=== PATIENT | male | born 1995 | race African-American/Black ===

== ENCOUNTER 2021-08-19 17:56 | Emergency (ER) | payer SELFPAY ==
[2021-08-19 18:06] VITALS: BP 117/59; PULSE 98; RESP 16; TEMP 37.1; O2SAT 99
--- NOTE | 2021-08-19 18:59 | ED.MALEGU ---
HPI - Male Genitourinary General Chief complaint: Urogenital-Male Stated complaint: STD TESTING Time Seen by Provider: 08/19/21 18:53 Source: patient and RN notes reviewed Mode of arrival: ambulatory Limitations: no limitations History of Present Illness HPI Narrative: Patient presents today requesting treatment for trichomonas. His fijennifer?e has tested positive at her [employer]ICE [employer]OCI[employer]'s office. She is currently and has undergone treatment. Patient denies any symptoms. MD Complaint: possible STD exposure Related Data Allergies Allergy/AdvReac Type Severity Reaction Status Date / Time No Known Allergies Allergy Verified 08/19/21 19:01 Review of Systems Review of Systems: CONSTITUTIONAL: Denies body aches, fever, chills, or sweats. EYES: Denies visual changes, redness, or discharge. ENT: Denies rhinorrhea, congestion, sore throat, or otalgia. CARDIOVASCULAR: Denies chest pain, palpitations, or edema. RESPIRATORY: Denies cough or dyspnea. GASTROINTESTINAL: Denies abdominal pain, nausea, vomiting, or diarrhea. GENITOURINARY: Denies dysuria or hematuria. SKIN: Denies rash, itching, or wounds. MUSCULOSKELETAL: Denies back pain, joint pain, or myalgia. NEUROLOGIC: Denies headache, numbness, tingling, or weakness. PSYCH: Denies depression or anxiety. PMFSH Comments At time of signature, I have reviewed and agree with nursing past medical, surgical, social and family history unless otherwise noted. Please see nursing chart for further information. There is no relevant family history pertinent to the presenting complaint Exam Narrative: GENERAL: Well-appearing, well-nourished, and in no acute distress. HEAD: Normocephalic, atraumatic. EYES: EOMI. No redness or drainage. Conjunctivae normal. ENT: Mucous membranes pink and moist. NECK: Normal AROM. CHEST: No respiratory distress. : deferred EXTREMITIES: Normal range of motion. No edema. SKIN: Warm, dry, no rash. Capillary refill normal. Normal skin turgor. NEURO: No focal deficits. Alert and oriented x3. Gait steady. PSYCH: Normal affect. No signs of depression or anxiety. Course Course Emergency Course: At this time, the restaurants are out of order at the [facility], so a urine sample cannot be obtained. Will treat with Flagyl. Vital Signs Vital signs: Vital Signs Temperature 98.7 F 08/19/21 18:06 Pulse Rate 98 08/19/21 18:06 Respiratory Rate 16 08/19/21 18:06 Blood Pressure 117/59 L 08/19/21 18:06 Pulse Oximetry 99 08/19/21 18:06 Temperature 98.7 F 08/19/21 18:06 Pulse Rate 98 08/19/21 18:06 Respiratory Rate 16 08/19/21 18:06 Blood Pressure 117/59 L 08/19/21 18:06 Pulse Oximetry 99 08/19/21 18:06 Reviewed MDM - Male Genitourinary Differential Diagnosis Differential diagnosis: Likely other (Trichomonas) Critical Care Time Critical Care Time Critical Care Time: No Discharge Plan Discharge Clinical Impression: Exposure to sexually transmitted disease (STD) Patient Disposition: Home, Self-Care Condition: Stable Instructions: Antibiotic Form, Trichomoniasis (ED) Additional Instructions: Please take the Flagyl as prescribed until gone. As discussed, do not drink any alcohol or use any alcohol containing mouthwashes during the course of your treatment. Abstain from intercourse for 1 week following your treatment. Follow-up with sexual health clinic or your PCP with any concerns. Patient Language: Sinhala Prescriptions: New metronidazole 500 mg tablet 500 mg PO Q12H 7 Days Qty: 14 RF: 0 Follow-up/Referrals: UNKNOWN,DOCTOR [Primary Care Provider] - Time of Disposition: 19:03
[2021-08-19 19:01] VITALS: BP 117/59; PULSE 98; RESP 16; TEMP 37.1; O2SAT 99
== END 2021-08-19 19:08 | disposition home or self-care (01) ==
PROVIDERS: Emergency Provider Nurse Practitioner
DX: Z11.3 Encounter for screening for infections with a predominantly sexual mode of transmission (principal)
CPT/HCPCS: 99203; G0463

== ENCOUNTER 2022-03-14 15:11 | Emergency (ER) | payer SELFPAY ==
--- NOTE | 2022-03-14 15:13 | ED.WOUNDLAC ---
HPI - Wound/Laceration General Stated Complaint: Laceration on finger Time Seen by Provider: 03/14/22 15:13 Source: patient Mode of arrival: ambulatory Limitations: no limitations History of Present Illness HPI narrative: Mr. Ball is a 26-year-old male patient presenting to the clinic today with complaints of a laceration to his finger. He reports he was trying to cut open a container of biscuits and cut his finger. Tetanus shot is up-to-date. This happened 20 minutes prior to arrival. Related Data Home Medications Medication Instructions Recorded Confirmed No Home Medications 03/14/22 03/14/22 Allergies Allergy/AdvReac Type Severity Reaction Status Date / Time No Known Allergies Allergy Verified 03/14/22 15:34 Review of Systems Review of Systems: Pertinent positives per HPI. Patient denies any fever, chills, rash, headache, visual changes, dizziness, cough, runny nose, sore throat, shortness of breath, chest pain, palpitations, nausea, vomiting, diarrhea, constipation, abdominal pain, or any urinary issues. PMFSH Comments At the time of my signature, I reviewed and agree with the nursing past medical, surgical, social, and family history. There is no relevant family history pertinent to the patient complaint. Exam Narrative: General: Well-developed, well nourished, in no apparent distress Head: Normocephalic, atraumatic. Cardio: Regular rate and rhythm, s1 and s2 normal, no murmur appreciated. Resp: Clear to auscultation bilaterally, no rhonchi, rales, wheezing or rubs. Integumentary: [place], warm, and dry, 1.5 cm horizontal laceration to the volar left thumb near the MIP joint, bleeding controlled with pressure Course Course Emergency Course: Portions of this record may have been created with voice recognition software. Level of Care: Express Care Visit Vital Signs Vital signs: Vital signs reviewed MDM - Wound/Laceration MDM Narrative Medical decision making narrative: At the time of visit patient is resting comfortably on the exam table. Laceration repair performed and metal splint was applied. Patient was given discharge instructions and voiced understanding. Tetanus shot is up-to-date per patient. Differential Diagnosis Differential diagnosis: Likely laceration Discharge Plan Discharge Clinical Impression: Laceration of thumb Qualifiers: Encounter type: initial encounter Damage to nail status: without damage Foreign body presence: without foreign body Laterality: left Qualified Code(s): S61.012A - Laceration without foreign body of left thumb without damage to nail, initial encounter Patient Disposition: Home, Self-Care Condition: Stable Instructions: Antibiotic Form, Care For Your Stitches (ED), Laceration (ED) Additional Instructions: Leave bandage on for 24 hours then may remove and apply band aide covering as needed. Keep wound clean and dry Skin sutures out in 7 days. Wear splint to decrease risk of stitches being ripped out. Watch for signs and symptoms of infection- redness, streaking, swelling, purulent discharge, or increase in pain. Follow up with your PCP for suture removal or return to the Express care. Prescriptions: No Action metronidazole 500 mg tablet 500 mg PO Q12H 7 Days Qty: 14 0RF Follow-up/Referrals: PHYSICIAN,REGULATORY COMPLIANCE ENGINEER [Primary Care Provider] - Time of Disposition: 15:44 Quality NIHSS Nursing Documentation ED NIHSS nursing documentation: reviewed/agree
[2022-03-14 15:21] VITALS: BP 117/75; PULSE 98; RESP 16; TEMP 36.3; O2SAT 100
== END 2022-03-14 15:52 | disposition home or self-care (01) ==
PROVIDERS: Emergency Provider Nurse Practitioner Family
DX: S61.012A Laceration without foreign body of left thumb without damage to nail, initial encounter (principal); W45.8XXA Other foreign body or object entering through skin, initial encounter
CPT/HCPCS: 12001; 99212; G0463